=== PATIENT | female | born 1975 | race Caucasian/White ===

== ENCOUNTER → 2018-04-09 | Outpatient (CLI) | payer OTHER ==
--- NOTE | 2018-04-14 10:55 | MM ---
Reason for exam: screening (asymptomatic). Last mammogram was performed 15 years and 4 months ago. History: Family history of premenopausal breast cancer in maternal grandmother. Physical Findings: A clinical breast exam by your physician is recommended on an annual basis and results should be correlated with mammographic findings. MG Screening Mammo W/o Cad Bilateral CC and MLO view(s) were taken. Technologist: Samina Stevens RT (R)(M) No prior studies available for comparison. Asymmetric breast tissue left middle depth. There is no discrete abnormality. ASSESSMENT: Negative, BI-RAD 1 RECOMMENDATION: Routine screening mammogram of both breasts in 1 year.
== END | disposition home or self-care (01) ==
LOC: RADMAMWWP 09:23
PROVIDERS: ATTEND Family Medicine
DX: Z12.31 Encounter for screening mammogram for malignant neoplasm of breast (principal)
CPT/HCPCS: 77067

== ENCOUNTER → 2019-08-26 | Outpatient (CLI) | payer OTHER ==
--- NOTE | 2019-08-29 09:32 | MM ---
Reason for exam: screening (asymptomatic). Last mammogram was performed 1 year and 5 months ago. History: Family history of premenopausal breast cancer in maternal grandmother. Physical Findings: A clinical breast exam by your physician is recommended on an annual basis and results should be correlated with mammographic findings. MG Screening Mammo w CAD Bilateral CC and MLO view(s) were taken. Prior study comparison: April 09, 2018, bilateral MG screening mammo w/o cad. November 25, 2002, bilateral diagnostic mammogram. The breast tissue is heterogeneously dense. This may lower the sensitivity of mammography. No suspicious abnormality. No significant changes when compared with prior studies. ASSESSMENT: Negative, BI-RAD 1 RECOMMENDATION: Routine screening mammogram of both breasts in 1 year.
== END | disposition home or self-care (01) ==
LOC: RADMAMWWP 12:07
PROVIDERS: ATTEND Family Medicine
DX: Z12.31 Encounter for screening mammogram for malignant neoplasm of breast (principal)
CPT/HCPCS: 77067

== ENCOUNTER → 2020-11-02 | Outpatient (CLI) | payer OTHER ==
--- NOTE | 2020-11-05 11:53 | MM ---
Reason for exam: screening (asymptomatic). Last mammogram was performed 1 year and 2 months ago. History: Family history of premenopausal breast cancer in maternal grandmother. Physical Findings: A clinical breast exam by your physician is recommended on an annual basis and results should be correlated with mammographic findings. MG Screening Mammo w CAD Bilateral CC and MLO view(s) were taken. Prior study comparison: August 26, 2019, bilateral MG screening mammo w CAD. April 09, 2018, bilateral MG screening mammo w/o cad. There are scattered fibroglandular densities. No significant changes when compared with prior studies. ASSESSMENT: Negative, BI-RAD 1 RECOMMENDATION: Routine screening mammogram of both breasts in 1 year.
== END | disposition home or self-care (01) ==
LOC: RADMAMWWP 07:32
PROVIDERS: ATTEND Family Medicine
DX: Z12.31 Encounter for screening mammogram for malignant neoplasm of breast (principal)
CPT/HCPCS: 77067

== ENCOUNTER → 2021-11-08 | Outpatient (CLI) | payer OTHER ==
--- NOTE | 2021-11-12 11:18 | MM ---
Reason for exam: screening (asymptomatic). Last mammogram was performed 1 year ago. History: Family history of breast cancer in mother at age 65 and premenopausal breast cancer in maternal grandmother. Physical Findings: A clinical breast exam by your physician is recommended on an annual basis and results should be correlated with mammographic findings. MG Screening Mammo w CAD Bilateral CC and MLO view(s) were taken. Prior study comparison: November 02, 2020, bilateral MG screening mammo w CAD. August 26, 2019, bilateral MG screening mammo w CAD. There are scattered fibroglandular densities. Focal asymmetry, increased in density on left MLO view. This finding is changed when compared with previous exams. ASSESSMENT: Incomplete: need additional imaging evaluation, BI-RAD 0 RECOMMENDATION: Special view mammogram of the left breast. If lesion persists on supplemental views, image directed ultrasound is recommended. [facility] will attempt to contact patient to return for supplemental views and ultrasound if indicated.
== END | disposition home or self-care (01) ==
LOC: RADMAMWWP 07:20
PROVIDERS: ATTEND Family Medicine
DX: Z12.39 Encounter for other screening for malignant neoplasm of breast (principal)
CPT/HCPCS: 77067

== ENCOUNTER → 2021-11-13 | Outpatient (CLI) | payer OTHER ==
--- NOTE | 2021-11-13 07:52 | MM ---
Reason for exam: additional evaluation requested from abnormal screening. Last mammogram was performed less than 1 month ago. History: Family history of breast cancer in mother at age 65 and premenopausal breast cancer in maternal grandmother. Physical Findings: A clinical breast exam by your physician is recommended on an annual basis and results should be correlated with mammographic findings. MG Work Up Mamm w CAD LT Spot compression CC, spot compression MLO, and LM view(s) were taken of the left breast. Prior study comparison: November 08, 2021, bilateral MG screening mammo w CAD. November 02, 2020, bilateral MG screening mammo w CAD. Focal asymmetry 8cm from nipple at 12 o'clock. These results were verbally communicated with the patient and result sheet given to the patient on 11/13/21. ASSESSMENT: Incomplete: need additional imaging evaluation, BI-RAD 0 RECOMMENDATION: Ultrasound of the left breast.
--- NOTE | 2021-11-13 07:54 | USB ---
Reason for exam: additional evaluation requested from abnormal screening. History: Family history of breast cancer in mother at age 65 and premenopausal breast cancer in maternal grandmother. US Breast Workup Limited LT Left limited breast ultrasound including focal area of concern, retroareolar and axilla demonstrates no cystic or solid lesion seen. Scanned 11-1 o'clock. These results were verbally communicated with the patient and result sheet given to the patient on 11/13/21. ASSESSMENT: Negative, BI-RAD 1 RECOMMENDATION: Return to routine screening mammogram schedule for both breasts.
== END | disposition home or self-care (01) ==
LOC: RADMAMWWP 07:00
PROVIDERS: ATTEND Family Medicine
DX: R92.8 Other abnormal and inconclusive findings on diagnostic imaging of breast (principal)
CPT/HCPCS: 77065

== ENCOUNTER → 2022-07-11 | Outpatient (CLI) | payer OTHER ==
--- NOTE | 2022-07-11 15:28 | US ---
EXAMINATION TYPE: US transvaginal DATE OF EXAM: 07/11/2022 COMPARISON: NONE CLINICAL HISTORY: N93.8 OTHER SPECIFIED ABN UTERINE AND VAG BLEEDING. Pt states heavy vaginal bleedin g, pre-op ablation TECHNIQUE: Transvaginal (TV). Transvaginal sonographic images of the pelvis were acquired. Date of LMP: 06/19/2022 EXAM MEASUREMENTS: Uterus: 11.2 x 5.8 x 6.4 cm Endometrial Stripe: 1.3 cm Right Ovary: 2.3 x 1.9 x 1.8 cm Left Ovary: 2.8 x 2.5 x 1.8 cm 1. Uterus: Anteverted Nabothian cyst in cervix= 1.4 cm 2. Endometrium: upper limits of normal for thickness 3. Right Ovary: wnl, follicles 4. Left Ovary: wnl, follicles 5. Bilateral Adnexa: wnl 6. Posterior cul-de-sac: wnl IMPRESSION: Cervical nabothian cysts. Otherwise unremarkable study.
== END | disposition home or self-care (01) ==
LOC: RADUSWWP 14:42
PROVIDERS: ATTEND Obstetrics & Gynecology
DX: N88.8 Other specified noninflammatory disorders of cervix uteri (principal)
CPT/HCPCS: 76830

== ENCOUNTER → 2022-09-17 | Outpatient (CLI) | payer OTHER ==
[2022-09-17 15:59] LABS: Basophils # (A) 0.01 X 10*3/uL (0.00-0.10); Basophils % (A) 0.1 %; Eosinophils # (A) 0.07 X 10*3/uL (0.04-0.35); HCT 38.6 % (37.2-46.3); HGB 12.2 g/dL (12.0-15.0); Immature Grans, Automated 0.3 %; Lymphocytes # (A) 2.42 X 10*3/uL (0.90-5.00); MCH 28.2 pg (27.0-32.0); MCHC 31.6 g/dL (32.0-37.0); MCV 89.1 fL (80.0-97.0); Mean Platelet Volume 11.6 fL (9.5-12.2); Monocytes # (A) 0.48 X 10*3/uL (0.20-1.00); Monocytes % (A) 6.9 %; NRBC Per 100 WBC 0 /100 WBCS (0.0-0.0); Neutrophils # (A) 3.91 X 10*3/uL (1.80-7.70); Neutrophils % (A) 56.7 %; Platelet Count 218 X 10*3/uL (140-440); RBC 4.33 X 10*6/uL (4.10-5.20); RDW 13.7 % (11.5-14.5); WBC 6.91 X 10*3/uL (4.50-10.00)
== END | disposition home or self-care (01) ==
LOC: LABPAT 07:59
PROVIDERS: ATTEND Obstetrics & Gynecology
DX: Z01.812 Encounter for preprocedural laboratory examination (principal)
CPT/HCPCS: 85025

== ENCOUNTER 2022-09-26 05:50 | Day surgery (SDC) | payer OTHER ==
[2022-09-23 12:28] VITALS: BMI 38.0
--- NOTE | 2022-09-25 12:17 | P.HPOB ---
History of Present Illness H&P Date: 09/25/22 Chief Complaint: Dysfunctional uterine bleeding. This patient is a pleasant 47-year-old female who presented to me in June with complaints of many year history of heavy menstrual bleeding and irregular bleeding. Patient stated that her periods have become much heavier and longer. The first 2 days she has to change multiple pads sometimes her bleeding lasts for up to 10 days. Patient was requesting endometrial ablation for treatment. Evaluation included a transvaginal ultrasound which was normal. Patient's had a tubal ligation. I also did an endometrial biopsy in August which was negative with the exception of a possible polyp. Review of Systems Genitourinary: Reports abnormal vaginal bleeding Menstruation: Reports as per HPI Past Medical History Past Medical History: No Reported History History of Any Multi-Drug Resistant Organisms: None Reported Past Surgical History: Tubal Ligation Past Anesthesia/Blood Transfusion Reactions: No Reported Reaction Past Psychological History: No Psychological Hx Reported Smoking Status: Never smoker Past Alcohol Use History: Occasional Past Drug Use History: None Reported - Past Family History Mother Family Medical History: Cancer, Hypertension Father Family Medical History: Hypertension Medications and Allergies Home Medications Medication Instructions Recorded Confirmed Type No Known Home Medications 09/23/22 09/23/22 History Allergies Allergy/AdvReac Type Severity Reaction Status Date / Time No Known Allergies Allergy Verified 09/23/22 12:24 Exam - OBG Physical Exam Abdomen: bowel sounds normal, no diffuse tenderness, no bruit present, no guarding noted, no hepatomegaly, no splenomegaly, no mass Vulva: both: normal Vagina: normal moisture, no discharge Cervix: no lesion, no discharge Uterus: normal size, normal contour Results Transvaginal ultrasound was normal. Endometrial biopsy was benign. Assessment and Plan Assessment: This is a pleasant 47-year-old female with long-standing dysfunctional uterine bleeding has become progressively worse over the last 1-2 years is now requesting endometrial ablation for treatment. Plan is hysteroscopy, D&C, and NovaSure endometrial ablation. I did have a long discussion with the patient about this procedure including the risks of infection, bleeding, possible uterine perforation, and/or thermal injury. All the patient's questions are answered and a written consent is obtained. (1) Dysfunctional uterine bleeding Status: Acute Code(s): N93.8 - OTHER SPECIFIED ABNORMAL UTERINE AND VAGINAL BLEEDING SNOMED Code(s): 95256809554527
[~2022-09-26 05:50] MED LIST: Pre Op ABX Message 1 EACH MISC MISCELLANE ONE
[2022-09-26] MEDS ORDERED: SCOPOLAMINE 1 MG/72 HR PATCH TRANSDERM ONE (06:00)
[2022-09-26] MEDS ORDERED: LACTATED RINGERS 1,000 ML IV SCH (06:00)
[2022-09-26] MEDS ORDERED: DEXAMETHASONE SOD PHOSPHATE 4 MG/ML 1 ML VIAL IV ONE (06:00)
[2022-09-26] MEDS ORDERED: MIDAZOLAM 2 MG/2 ML VIAL IV PRN (06:00)
[2022-09-26] MEDS ORDERED: LACTATED RINGERS 1,000 ML IV ONE (06:13)
[2022-09-26] MEDS: ONDANSETRON 4 MG/2 ML VIAL IVP ONE ×2 (06:26→07:38)
[2022-09-26] MEDS ORDERED: MIDAZOLAM 2 MG/2 ML VIAL ONE (06:47)
[2022-09-26] MEDS ORDERED: PROPOFOL 10 MG/ML 20 ML VIAL IV ONE (06:47)
[2022-09-26] MEDS ORDERED: fentaNYL (PF) 50 MCG/ML 2 ML AMP ONE (06:47)
[2022-09-26] MEDS ORDERED: LIDOCAINE 2% INJ 20 MG/ML (2 ML VIAL) ONE (06:47)
--- NOTE | 2022-09-26 07:24 | P.OP ---
Date of Procedure: 09/26/22 Preoperative Diagnosis: Dysfunctional uterine bleeding Postoperative Diagnosis: Same Procedure(s) Performed: #1: Hysteroscopy. #2: Dilation and curettage. 3: NovaSure endometrial ablation Anesthesia: other (LMA) Surgeon: Yusuf Vasquez Estimated Blood Loss (ml): 20 Urine output (ml): 50 Pathology: other (Uterine curettings) Condition: stable Disposition: PACU Indications for Procedure: Please see dictated H&P intimate details of this patient's admission. Brief summary this pleasant 47-year-old female with long-standing dysfunctional uterine bleeding menorrhagia requesting endometrial ablation for treatment. Patient does understand the surgery and risks and risks of infection, bleeding, possible uterine perforation, and/or thermal injury. All the patient's questions are answered written consent is obtained. Operative Findings: This patient had normal-appearing endometrial cavity Description of Procedure: This patient is taken to the operating room where she is laid in the supine position. After the appropriate timeout, patient undergoes general anesthesia without incident. With an adequate level of anesthesia she's placed in dorsal lithotomy position. She has a vaginal perineal prep and drape. Examination under anesthesia shows a mid position uterus of normal size. We placed a weighted speculum in the vagina. Bladder is drained for 50 mL of clear urine. Please Allis clamp and the anterior lip of the cervix. Uterus is gently sounded to 8.5 cm. Cervix is dilated to allow the hysteroscope easily uterine cavity. Using saline solution hysteroscopy is performed uterine cavity was visualized and measured a length of 6.0 cm. Hysteroscope was then removed. Cervix is dilated more to allow a sharp curette easily uterine cavity. A gentle but thorough 4 quadrant curettage is then done. This completed the NovaSure device is opened appears to be intact. Set at a length of 6.0 cm and opens up to a width of 3.5 cm. After it is seated in place and passes the cavity integrity test, it is enabled at 116 W setting for 77 seconds. With this completed the NovaSure device is removed. Hysteroscopy is performed the uterine cavity appears to be completely ablated up to the endocervix. Excellent results are noted. This point the procedure is ended. The Allis clamp and weighted speculum removed. All counts are correct 3. There are no complications. Patient is awakened from anesthesia and taken recovery room satisfactory condition.
[2022-09-26 07:32] VITALS: RESP 16; TEMP 97
[2022-09-26] MEDS: HYDROmorphone 0.5 MG/0.5 ML SYRINGE IVP PRN ×3 (07:36→07:56)
[2022-09-26] MEDS ORDERED: IBUPROFEN 200 MG TAB PO ONE (08:43)
[2022-09-26 08:49] VITALS: BP 108/74; PULSE 72
== END 2022-09-26 09:01 | disposition home or self-care (01) ==
LOC: OR 05:50
PROVIDERS: ATTEND Obstetrics & Gynecology
DX: N93.8 Other specified abnormal uterine and vaginal bleeding (principal); F10.90 Alcohol use, unspecified, uncomplicated; Z82.49 Family history of ischemic heart disease and other diseases of the circulatory system
CPT/HCPCS: 81025; 58563; J2250; J1100; J2405; J3010; J2704; J1170; J2001; 88305

== ENCOUNTER → 2022-12-05 | Outpatient (CLI) | payer OTHER ==
--- NOTE | 2022-12-08 12:43 | MM ---
Reason for Exam: Screening (asymptomatic). Last mammogram was performed 1 year(s) and 1 month(s) ago. Patient History: Menarche at age 13. First Full-Term at age 23. Maternal grandmother had breast cancer. Mother had breast cancer, age 65. Last menstrual period: 09/26/2022 Risk Values: Jaleesa 5 year model risk: 1.7%. NCI Lifetime model risk: 19.1%. Prior Study Comparison: 11/02/2020 Bilateral Screening Mammogram, [facility]. 11/08/2021 Bilateral Screening Mammogram, [facility]. 11/13/2021 Left Diagnostic Mammogram, [facility]. Tissue Density: There are scattered fibroglandular densities. Findings: Analyzed By CAD. There is no suspicious new group of microcalcifications or new suspicious mass in either breast. Overall Assessment: Negative, BI-RAD 1 Management: Screening Mammogram of both breasts in 1 year. A clinical breast exam by your physician is recommended on an annual basis and results should be correlated with mammographic findings. Electronically signed and approved by: Bora Champion M.D.
== END | disposition home or self-care (01) ==
LOC: RADMAMWWP 09:33
PROVIDERS: ATTEND Obstetrics & Gynecology
DX: Z12.31 Encounter for screening mammogram for malignant neoplasm of breast (principal); Z80.3 Family history of malignant neoplasm of breast
CPT/HCPCS: 77067

== ENCOUNTER → 2023-12-11 | Outpatient (CLI) | payer OTHER ==
--- NOTE | 2023-12-14 07:49 | MM ---
Reason for Exam: Screening (asymptomatic). Last screening mammogram was performed 12 month(s) ago. Patient History: Menarche at age 13. First Full-Term at age 23. Maternal grandmother had breast cancer, age 40. Mother had breast cancer, age 65. Risk Values: Jaleesa 5 year model risk: 1.8%. NCI Lifetime model risk: 18.9%. Prior Study Comparison: 11/08/2021 Bilateral Screening Mammogram, [facility]. 11/13/2021 Left Diagnostic Mammogram, [facility]. 12/05/2022 Bilateral MG screening mammo w CAD, [facility]. Tissue Density: There are scattered areas of fibroglandular density. Findings: Analyzed By CAD. The pattern is symmetrical. Stable asymmetric densities within the mid left breast. No suspicious groups of microcalcifications, spiculated or lobular masses, architectural distortion or other secondary signs of malignancy are mammographically apparent. Overall Assessment: Benign, BI-RAD 2 Management: Screening Mammogram of both breasts in 1 year. A negative mammogram report should not preclude additional follow up of suspicious palpable abnormalities. Patient should continue monthly self breast exam. A clinical breast exam by your physician is recommended on an annual basis and results should be correlated with mammographic findings. Electronically signed and approved by: José Miguel Davis D.O. Radiologis
== END | disposition home or self-care (01) ==
LOC: RADMAMWWP 07:43
PROVIDERS: ATTEND Family Medicine
DX: Z12.31 Encounter for screening mammogram for malignant neoplasm of breast (principal); Z80.3 Family history of malignant neoplasm of breast
CPT/HCPCS: 77067

== ENCOUNTER → 2025-01-13 | Outpatient (CLI) | payer SELFPAY ==
--- NOTE | 2025-01-13 08:16 | MM ---
Reason for Exam: Screening (asymptomatic). Last mammogram was performed 1 year(s) and 2 month(s) ago. Patient History: Menarche at age 13. First Full-Term at age 23. Maternal grandmother had breast cancer, age 40. Mother had breast cancer, age 65. Risk Values: Jaleesa 5 year model risk: 1.8%. NCI Lifetime model risk: 18.6%. Prior Study Comparison: 11/13/2021 Left Diagnostic Mammogram, [facility]. 12/05/2022 Bilateral MG screening mammo w CAD, [facility]. 12/11/2023 Bilateral MG screening mammo w CAD, [facility]. Tissue Density: There are scattered areas of fibroglandular density. Findings: Analyzed By CAD. There is no suspicious new group of microcalcifications or new suspicious mass in either breast. Overall Assessment: Negative, BI-RAD 1 Management: Screening Mammogram of both breasts in 1 year. . Patient should continue monthly self-breast exams. A clinical breast exam by your physician is recommended on an annual basis. This exam should not preclude additional follow-up of suspicious palpable abnormalities. Note on Jaleesa scores and lifetime risk: 1. A Jaleesa score greater than 3% is considered moderate risk. If this is the case, consider specialist referral to assess eligibility for a risk reducing agent. 2. If overall lifetime risk for the development of breast cancer is 20% or higher, the patient may qualify for future screening with alternating mammogram and breast MRI. [facility], , 01/13/2025 8:14 AM. Electronically signed and approved by: Bora Champion M.D.
== END | disposition home or self-care (01) ==
LOC: RADMAMWWP 07:37
PROVIDERS: ATTEND Family Medicine
DX: Z12.31 Encounter for screening mammogram for malignant neoplasm of breast (principal); R92.323 Mammographic fibroglandular density, bilateral breasts; Z80.3 Family history of malignant neoplasm of breast
CPT/HCPCS: 77067